=== PATIENT | female | born 1985 | race Caucasian/White ===

== ENCOUNTER 2016-09-24 09:18 | Emergency (ER) | payer BC ==
[2016-09-24 10:13] VITALS: BP 127/81
[2016-09-24] MEDS ORDERED: BSS OPTH.SOL* BTL ONE (11:07)
[2016-09-24] MEDS ORDERED: Fluorescein Sodium TOPICAL* 1 MG TEST ONE (11:07)
[2016-09-24] MEDS ORDERED: Tetracaine 0.5% OPTH.SOL 4 ML* 1 DROP BTL ONE (11:07)
--- NOTE | 2016-09-24 11:35 | UC ---
Eye Complaint HPI - HPI Summary HPI Summary: IS FASCINATED WITH EYES AND TWO MONTHS AGO RECEIVED SCRATCH FROM INFANT IN LEFT EYE. THIS SCRATCHING HAS BEEN RECURRING. LAST SCRATCH TWO DAYS AGO. HAS LEFT EYE IRRITATION AND REDNESS AFTER INJURY. NO FEVER NO PAIN WITH EYE MOVEMENT. NO CONTACT LENS USE. - History of Current Complaint Chief Complaint: UCEye Stated Complaint: LEFT EYE COMPLAINT Time Seen by Provider: 09/24/16 10:51 Hx Obtained From: Patient Hx Last Menstrual Period: 09/17/16 Onset/Duration: Sudden Onset, Lasting Weeks, Worse Since - TWO DAYS AGO Timing: Days Severity Initially: Moderate Severity Currently: Moderate Location of Injury: Conjunctiva, Other - CORNEA Character: Dull Alleviating Factor(s): Nothing Associated Signs And Symptoms: Positive: Drainage (Clear) - TEARS. Negative: Photophobia, Drainage (Purulent), Vision Impairment Bilateral, Vision Impairment Right, Vision Impairment Left, Fever Related History: Similar Episode, Trauma - Risk Factors Acute Glaucoma Risk Factors: Eye Trauma - Allergies/Home Medications Allergies/Adverse Reactions: Allergies Allergy/AdvReac Type Severity Reaction Status Date / Time No Known Allergies Allergy Verified 09/24/16 10:07 Home Medications: Home Medications Cholecalciferol [Vitamin D] 1,000 unit PO DAILY 09/24/16 [History Confirmed ] Vitamin B Complex TAB* [Complex B-100*] 1 tab PO DAILY 09/24/16 [History Confirmed 09/24/16] PMH/Surg Hx/FS Hx/Imm Hx Previously Healthy: Yes Endocrine History Of: Reports: Thyroid Disease - Hypothyroidism - Surgical History Surgical History: Yes Surgery Procedure, Year, and Place: Skin Grafts, 2007 - Family History Known Family History: Negative: Diabetes - Social History Occupation: Employed Full-time Lives: With Family Alcohol Use: Rare Substance Use Type: None Smoking Status (MU): Never Smoked Tobacco Review of Systems Constitutional: Negative Skin: Negative Eyes: Drainage, Eye Redness ENT: Negative Respiratory: Negative Cardiovascular: Negative Gastrointestinal: Negative Genitourinary: Negative Motor: Negative Neurovascular: Negative Musculoskeletal: Negative Neurological: Negative Psychological: Negative All Other Systems Reviewed And Are Negative: Yes Physical Exam Triage Information Reviewed: Yes Appearance: Well-Appearing, No Pain Distress, Well-Nourished Vital Signs: Initial Vital Signs Temp 98 F 09/24/16 10:09 Pulse 70 09/24/16 10:09 Resp 16 09/24/16 10:09 BP 127/81 09/24/16 10:09 Pulse Ox 98 09/24/16 10:09 Eyes: Positive: Conjunctiva Inflamed, Other: - FLUORESCEIN UPTAKE WITH SUPERFICIAL ABRASIONS OF CORNEA : 4 OCLOCK TO 7 OCLOCK AND FROM 2 OCLOCK TO 11 OCLOCK ENT: Positive: Normal ENT inspection, Hearing grossly normal, Pharynx normal, TMs normal Dental Exam: Normal Neck exam: Normal Neck: Positive: Supple, Nontender Respiratory Exam: Normal Respiratory: Positive: Chest non-tender, Lungs clear, Normal breath sounds Cardiovascular Exam: Normal Cardiovascular: Positive: RRR, No Murmur Abdominal Exam: Normal Abdomen Description: Positive: Nontender, No Organomegaly Musculoskeletal Exam: Normal Musculoskeletal: Positive: Strength Intact Neurological Exam: Normal Psychological Exam: Normal Psychological: Positive: Normal Response To Family Skin Exam: Normal Eye Complaint Course/Dx - Differential Dx/Diagnosis Differential Diagnosis/HQI/PQRI: Conjunctivitis, Corneal Abrasion Provider Diagnoses: LEFT CORNEAL ABRASION. LEFT CONJUNCTIVITIS Discharge - Discharge Plan Condition: Stable Disposition: HOME Prescriptions: Neomycin/Polym/HC OPTH.SUSP* [Cortisporin OPHTH.SUSP*] 1 drop LEFT EYE Q4H #1 btl Patient Education Materials: Corneal Abrasion (ED), Conjunctivitis (ED) Referrals: Hyun Pyle MD [Primary Care Provider] -
== END 2016-09-24 11:50 | disposition home or self-care (01) ==
LOC: UCCORT 09:18
DX: S05.02XA Injury of conjunctiva and corneal abrasion without foreign body, left eye, initial encounter (principal); X58.XXXA Exposure to other specified factors, initial encounter; Y93.9 Activity, unspecified; Y92.9 Unspecified place or not applicable; H10.32 Unspecified acute conjunctivitis, left eye
CPT/HCPCS: 99212; A9270-GY; G0463

== ENCOUNTER 2017-02-09 16:00 | Emergency (ER) | payer BC ==
[2017-02-09 17:33] VITALS: BP 149/79
--- NOTE | 2017-02-09 17:43 | UC ---
Throat Pain/Nasal Brandt HPI - HPI Summary HPI Summary: The patient comes in today for: 1. Sore throat: Onset: This morning. Palliative/provocative: Cold water makes it feel better. Quality: "I can just feel it when I swallow"--not sharp or burning. Region: Both sides of the throat. Severity: 5/10 Time: Constant> Associated symptoms: * - History of Current Complaint Chief Complaint: UCRespiratory Stated Complaint: SORE THROAT Time Seen by Provider: 02/09/17 17:40 Hx Last Menstrual Period: today - Allergies/Home Medications Allergies/Adverse Reactions: Allergies Allergy/AdvReac Type Severity Reaction Status Date / Time No Known Allergies Allergy Verified 02/09/17 17:32 PMH/Surg Hx/FS Hx/Imm Hx - Surgical History Surgical History: Yes Surgery Procedure, Year, and Place: Skin Grafts, 2007 - Family History Known Family History: Negative: Diabetes - Social History Alcohol Use: Rare Substance Use Type: None Smoking Status (MU): Never Smoked Tobacco Physical Exam Vital Signs: Initial Vital Signs Temp 100.4 F 02/09/17 17:30 Pulse 101 02/09/17 17:30 Resp 12 02/09/17 17:30 BP 149/79 02/09/17 17:30 Pulse Ox 99 02/09/17 17:30
--- NOTE | 2017-02-09 17:52 | UC ---
Throat Pain/Nasal Brandt HPI - HPI Summary HPI Summary: The patient comes in today for: 1. Sore throat: Onset: Just started today. Palliative/provocative: Cold water makes it feel better. Quality: Not burning or sore--"I can just feel it." Region: Both sides of the throat. Severity: 4/10 Time: Constant. Associated symptoms: Fevers: none Rhinitis: clear to light yellow. Cough present with clear mucous. 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 - History of Current Complaint Chief Complaint: UCRespiratory Stated Complaint: SORE THROAT Time Seen by Provider: 02/09/17 17:40 Hx Last Menstrual Period: today - Allergies/Home Medications Allergies/Adverse Reactions: Allergies Allergy/AdvReac Type Severity Reaction Status Date / Time No Known Allergies Allergy Verified 02/09/17 17:32 PMH/Surg Hx/FS Hx/Imm Hx Previously Healthy: No - Family planning/ BCP Endocrine History: Thyroid Disease - Surgical History Surgical History: Yes Surgery Procedure, Year, and Place: Skin Grafts, 2007 - Family History Known Family History: Negative: Hypertension, Diabetes - Social History Occupation: Employed Full-time Alcohol Use: Rare Substance Use Type: None Smoking Status (MU): Never Smoked Tobacco Review of Systems Constitutional: Negative Skin: Negative Eyes: Negative ENT: Sore Throat, Nasal Discharge Respiratory: Cough Gastrointestinal: Negative Genitourinary: Negative Musculoskeletal: Arthralgia, Myalgia All Other Systems Reviewed And Are Negative: Yes Physical Exam Triage Information Reviewed: Yes Appearance: Well-Appearing, No Pain Distress, Well-Nourished Vital Signs: Initial Vital Signs Temp 100.4 F 02/09/17 17:30 Pulse 101 02/09/17 17:30 Resp 12 02/09/17 17:30 BP 149/79 02/09/17 17:30 Pulse Ox 99 02/09/17 17:30 Vital Signs Reviewed: Yes Eyes: Positive: Conjunctiva Clear. Negative: Discharge ENT: Positive: Hearing grossly normal. Negative: Pharyngeal erythema, Nasal congestion, Nasal drainage, TM bulging, TM dull, TM red, Tonsillar swelling, Tonsillar exudate Dental: Negative: Gross Decay/Caries @, Dental Fracture @ Neck: Positive: Supple, Nontender, No Lymphadenopathy. Negative: Nuchal Rigidity Respiratory: Positive: Chest non-tender, Lungs clear, No respiratory distress, No accessory muscle use. Negative: Rhonchi, Wheezing Cardiovascular: Positive: RRR, No Murmur Abdomen Description: Positive: Nontender, No Organomegaly, Soft. Negative: Distended, Guarding Musculoskeletal: Positive: Strength Intact, ROM Intact, No Edema Neurological: Positive: Alert, Muscle Tone Normal Psychological: Positive: Age Appropriate Behavior, Consolable Skin: Negative: rashes, breakdown Diagnostics - Laboratory Diagnostic Studies Completed/Ordered: Strep test (+). Throat Pain/Nasal Course/Dx - Differential Dx/Diagnosis Differential Diagnosis/HQI/PQRI: Laryngitis, Otitis Media, Tonsillitis Provider Diagnoses: Strep pharyngitis Discharge - Discharge Plan Condition: Stable Disposition: HOME Patient Education Materials: Pharyngitis (ED) Referrals: Lashanda EDMONDSON,Hyun Galeas [Primary Care Provider] - 1 Week (Please see your primary care provider in about one to two weeks to see how well you are doing. If you get worse, please be seen sooner.)
== END 2017-02-09 18:20 | disposition home or self-care (01) ==
LOC: UCCORT 16:00
DX: J02.0 Streptococcal pharyngitis (principal); E07.9 Disorder of thyroid, unspecified
CPT/HCPCS: 87651; 99212; G0463

== ENCOUNTER 2019-02-11 20:29 | Emergency (ER) | payer BC ==
[2019-02-11 20:43] VITALS: BP 122/68
--- NOTE | 2019-02-11 21:00 | UC ---
Throat Pain/Nasal Brandt HPI - HPI Summary HPI Summary: 2 days of sore throat worse this morning than now--no fever, ear ache- - History of Current Complaint Chief Complaint: UCGeneralIllness Stated Complaint: SORE THROAT Time Seen by Provider: 02/11/19 20:56 Hx Obtained From: Patient Hx Last Menstrual Period: today ?: No Onset/Duration: Sudden Onset, Lasting Days - 2, Still Present Pain Intensity: 3 Pain Scale Used: 0-10 Numeric Associated Signs & Symptoms: Positive: Nasal Discharge - Allergies/Home Medications Allergies/Adverse Reactions: Allergies Allergy/AdvReac Type Severity Reaction Status Date / Time No Known Allergies Allergy Verified 02/11/19 20:43 Home Medications: Home Medications Ibuprofen TAB* [Motrin TAB* 400 MG] 400 mg PO Q6H PRN 02/11/19 [History Confirmed 02/11/19] Pnv No.95/Ferrous Fum/Folic AC [ Caplet] 1 each PO DAILY 02/11/19 [ History Confirmed 02/11/19] PMH/Surg Hx/FS Hx/Imm Hx Previously Healthy: No Endocrine History: Hypothyroidism - Surgical History Surgical History: Yes Surgery Procedure, Year, and Place: Skin Grafts, 2007 - Family History Known Family History: Negative: Hypertension, Diabetes - Social History Occupation: Employed Full-time Lives: With Family Alcohol Use: Rare Substance Use Type: None Smoking Status (MU): Never Smoked Tobacco Review of Systems All Other Systems Reviewed And Are Negative: Yes Constitutional: Positive: Negative Skin: Positive: Negative Eyes: Positive: Negative ENT: Positive: Sore Throat, Nasal Discharge Respiratory: Positive: Negative Cardiovascular: Positive: Negative Gastrointestinal: Positive: Negative Genitourinary: Positive: Negative Motor: Positive: Negative Neurovascular: Positive: Negative Musculoskeletal: Positive: Negative Neurological: Positive: Negative Psychological: Positive: Negative Is Patient Immunocompromised?: No Physical Exam Triage Information Reviewed: Yes Appearance: Well-Appearing, No Pain Distress, Well-Nourished Vital Signs: Initial Vital Signs Temp 97.5 F 02/11/19 20:41 Pulse 82 02/11/19 20:41 Resp 16 02/11/19 20:41 BP 122/68 02/11/19 20:41 Pulse Ox 99 02/11/19 20:41 Vital Signs Reviewed: Yes Eye Exam: Normal Eyes: Positive: Conjunctiva Clear ENT Exam: Normal ENT: Positive: Normal ENT inspection, Hearing grossly normal, Pharynx normal, Nasal congestion, Nasal drainage, TMs normal, Uvula midline. Negative: Tonsillar swelling, Tonsillar exudate, Trismus, Muffled voice, Hoarse voice, Dental tenderness, Sinus tenderness Dental Exam: Normal Neck exam: Normal Neck: Positive: Supple, Nontender, No Lymphadenopathy Respiratory Exam: Normal Respiratory: Positive: Chest non-tender, Lungs clear, Normal breath sounds, No respiratory distress, No accessory muscle use Cardiovascular Exam: Normal Cardiovascular: Positive: RRR, Pulses Normal, Brisk Capillary Refill Musculoskeletal Exam: Normal Musculoskeletal: Positive: Strength Intact, ROM Intact, No Edema Neurological Exam: Normal Neurological: Positive: Alert, Muscle Tone Normal Psychological Exam: Normal Skin Exam: Normal Diagnostics - Laboratory Lab Results: rst (-) Throat Pain/Nasal Course/Dx - Course Course Of Treatment: increase fluids, tylenol, ibuprofen, zyrtec, flonase follow with pcp prn - Differential Dx/Diagnosis Provider Diagnosis: Allergic rhinitis Discharge - Sign-Out/Discharge Documenting (check all that apply): Patient Departure All imaging exams completed and their final reports reviewed: No Studies - Discharge Plan Condition: Stable Disposition: HOME Patient Education Materials: Cetirizine (By mouth), Fluticasone (Into the nose) , Allergic Rhinitis (DC) Referrals: Lashanda EDMONDSON,Hyun Galeas [Primary Care Provider] - If Needed - Billing Disposition and Condition Condition: STABLE Disposition: Home
== END 2019-02-11 21:09 | disposition home or self-care (01) ==
LOC: UCCORT 20:29
DX: J30.9 Allergic rhinitis, unspecified (principal)
CPT/HCPCS: 87651; 99211; G0463